=== PATIENT | female | born 1950 | race Caucasian/White ===

== ENCOUNTER → 2016-08-26 | Outpatient (CLI) | payer OTHER | END | disposition home or self-care (01) | LOC: GMA 17:10 | PROVIDERS: ATTEND Nurse Practitioner Family | DX: E53.8 Deficiency of other specified B group vitamins (principal) ==

== ENCOUNTER → 2016-08-26 | Outpatient (CLI) | payer OTHER ==
--- NOTE | 2016-08-26 19:28 | CT ---
EXAM: Head CLINICAL INDICATION: 65-year-old female with dizziness. COMPARISON: None. TECHNIQUE: CT brain without contrast. FINDINGS: The ventricles, sulci, and cisterns are within normal limits. The lobato-white matter differentiation is preserved. There is no mass effect, midline shift, intra- or extra-axial fluid collection/acute hemorrhage. The osseous structures are unremarkable. The paranasal sinuses reveal mucosal thickening and thickening and sclerosis of the LEFT maxillary wall suggesting sequela of chronic sinus disease otherwise remaining paranasal sinuses and mastoid air cells are clear. IMPRESSION: No acute intracranial abnormalities. Electronically signed by: Mayra Krause MD 08/26/2016 7:28 PM CDT
== END | disposition home or self-care (01) ==
LOC: GMA 18:05
PROVIDERS: ATTEND Nurse Practitioner Family
DX: R42 Dizziness and giddiness (principal)